=== PATIENT | male | born 1990 | race Caucasian/White ===

== ENCOUNTER 2016-12-20 16:53 | Emergency (ER) | payer SELFPAY ==
[~2016-12-20] VITALS: Ht 193 cm; Wt 93.0 kg
[2016-12-20 16:55] VITALS: BP 139/72
[2016-12-20] MEDS ORDERED: IV NORMAL SALINE 1,000ML 1,000 ML IV SCH (17:01)
--- NOTE | 2016-12-20 17:22 | PHYS DOC ---
General Chief Complaint: ANIMAL BITE Stated Complaint: DOG BITE TO FACE Time Seen by MD: 17:01 Source: patient Exam Limitations: no limitations Problems: History of Present Illness Initial Comments Pt is 26/M to ED with SO c/o dog bite. Pt states immediately prior to arrival his SO's pitbull bit his face. Attack unprovoked, animal appeared well, the dog's vaccination status is unknown. Dog scrum product owner reveals that the animal is a rescue dog and has always shown mild aggression to men. No prior aggressive behavior shown to pt. Pt complains of severe facial pain/KOWALSKI, no neck pain/syncope/n/v. Last Td 3 years ago, attack not yet reported to law enforcement. Bleeding stopped prior to arrival with direct pressure, no pulsatile bleeding noted. Law enforcement notified and en route to take report. Animal is at SO residence. Bite wound primarily involves upper lip, there is some nasal trauma and an avulsion below the left eye. Timing/Duration: abrupt, this afternoon Severity: severe Location: nose, mouth, facial Prearrival Treatment: no prearrival treatment Modifying Factors: improves with other Associated Symptoms: other Allergies: Coded Allergies: No Known Drug Allergies (Unverified , 12/20/16) Past Medical History Medical History: no pertinent history Surgical History: noncontributory Social History Smoker: cigarettes Alcohol: none Drugs: none Constitutional: denies chills, denies fever, malaise Mouth: see HPI Throat: denies swelling, denies neck stiffness, denies painful swallowing Respiratory: denies cough, denies shortness of breath, denies wheezing Cardiovascular: denies chest pain, denies palpitations, denies syncope Gastrointestinal: denies abdominal pain, denies nausea, denies vomiting Musculoskeletal: denies back pain, denies joint swelling, denies neck pain Skin: see HPI Neurological: headachedenies numbness, denies paresthesia, denies weakness Hematologic/Lymphatic: denies blood clots, denies easy bleeding, denies easy bruising Physical Exam General Appearance: WD/WN, moderate distress, other (negative Silva sign/ raccoon eyes, no ear discharge no palpable bony deformity. 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 Will need OR. CT Maxillofacial pending. 1729: I discussed pt with Dr Thibodeaux, at [facility]. He accepts pt for transfer and medsurg admission. Pt refuses EMS will go private auto, SO agrees to drive him straight to ED. Departure Time of Disposition: 17:33 Disposition: 05 XFER OTHER Diagnosis: animal bite, lip/face lacerations Condition: STABLE Additional Instructions: Go directly to [facility] ED registration desk and deliver your discharge instructions. You are accepted by Dr Thibodeaux for medsurg admission. Return to ED as needed. DAVID JOHNSON DO Dec 20, 2016 17:22
[2016-12-20] MEDS: FENTANYL PF 100 MCG/2 ML VIAL. IV PRN ×3 (17:34→18:26)
[2016-12-20] MEDS ORDERED: AMPICILLIN/SULBACTAM 3 GM in IV NORMAL SALINE 100ML 100 ML IV ONE (17:45)
--- NOTE | 2016-12-20 20:25 | RAD ---
PROCEDURE CT of the head and CT of the facial bones HISTORY Bit in face by dog today. COMPARISON None TECHNIQUE Standard noncontrast images are obtained. Exposure: One or more of the following individualized dose reduction techniques were utilized for this exam: 1. Automated exposure control. 2. Adjustment of the mA and/or kV according to patient size. 3. Use of iterative reconstruction technique. FINDINGS Head No evidence of acute intracranial hemorrhage, mass effect or midline shift. No abnormal extra-axial fluid collection. Ventricles and sulci unremarkable. Greene-white matter distinction unremarkable. Paranasal sinuses are clear. Mastoids are clear. Orbits appear unremarkable. No evidence of depressed skull fracture Facial bones The paranasal sinuses are clear. No fluid levels identified. Orbits are unremarkable. No evidence of bone destruction. No evidence of acute fracture. There is some mild swelling of the left facial region with a tiny amount of subcutaneous air, just below the orbit may represent soft tissue injury. IMPRESSION 1. No acute intracranial abnormality. 2. Apparent mild soft tissue injury at the left cheek, correlate clinically. Electronically signed by: Aguilar Garcia MD (Dec 20, 2016 20:24:45)
== END 2016-12-20 18:46 | disposition short-term general hospital (02) ==
LOC: ER 16:54
DX: S01.511A Laceration without foreign body of lip, initial encounter (principal); S05.32XA Ocular laceration without prolapse or loss of intraocular tissue, left eye, initial encounter; F17.210 Nicotine dependence, cigarettes, uncomplicated; R51 Headache; W54.0XXA Bitten by dog, initial encounter; Y93.89 Activity, other specified; Y99.8 Other external cause status; Y92.89 Other specified places as the place of occurrence of the external cause
CPT/HCPCS: 70450; 70486; 96365; 96375; 96376; 99285; J0295; J3010

== ENCOUNTER 2017-02-02 19:16 | Emergency (ER) | payer SELFPAY ==
--- NOTE | 2017-02-02 19:32 | PHYS DOC ---
Past History Past Medical History: No Pertinent History Past Surgical History: No Surgical History Smoking: Cigarettes Alcohol Use: None Drug Use: None Adult General Chief Complaint Chief Complaint: SUTURE/STAPLE REMOVAL HPI HPI Patient is a 26 year old male who presents with "I think there is still a suture in my lip." Patient was originally here on December 20 after a dog bite. He was transferred to for plastics repair due to extensive amount of facial injury. He presents tonight his E things are still stitch left in his upper lip. He is very followed up with the surgeon and was told that those are dissolvable. He has no other complaints. No redness or swelling, no drainage. No fever. Review of Systems Review of Systems Constitutional: Denies fever or chills Eyes: Denies change in visual acuity, redness, or eye pain HENT: Denies nasal congestion or sore throat Integument: Denies rash or skin lesions. Healing wounds. Neurologic: Denies headache, focal weakness or sensory changes Allergies Allergies Allergies Coded Allergies Type Severity Reaction Last Updated Verified No Known Drug Allergies 12/20/16 No Physical Exam Physical Exam Constitutional: Well developed, well nourished, no acute distress, non-toxic appearance. HENT: Normocephalic, atraumatic, bilateral external ears normal, oropharynx moist, no oral exudates, nose normal. Healing wounds. No evidence of infection. No redness or swelling or drainage. Upper lip which is the area in question has no retained suture noted. Eyes: PERRLA, EOMI, conjunctiva normal, no discharge. [] Skin: Warm, dry, no erythema, no rash. Current Patient Data Vital Signs Vital Signs Date Time Temp Pulse Resp B/P (MAP) Pulse Ox O2 Delivery O2 Flow Rate FiO2 02/02/17 19:40 98.5 87 20 97 Room Air BP 112/64 Course & Med Decision Making Course & Med Decision Making Reassured the patient He is continue follow-up as scheduled with the plastic surgeon. Robina Disclaimer Dragon Disclaimer This chart was dictated in whole or in part using Voice Recognition software in a busy, high-work load, and often noisy Emergency Department environment. It may contain unintended and wholly unrecognized errors or omissions. Departure Departure: Referrals: PCP,BRYCE (PCP) GEETA CAPELLAN MD February 02, 2017 19:32
[2017-02-02 19:40] VITALS: BP 112/64
== END 2017-02-02 19:57 | disposition home or self-care (01) ==
LOC: ER 19:19
DX: Z48.01 Encounter for change or removal of surgical wound dressing (principal); F17.210 Nicotine dependence, cigarettes, uncomplicated
CPT/HCPCS: 99281